=== PATIENT | female | born 1995 | race American Indian/Alaskan Native ===

== ENCOUNTER 2017-10-06 17:31 | Outpatient (CLI) | payer BC, MEDICAID ==
[2017-10-06 19:04] LABS: Bacteria,Urine 2+ /HPF (Negative); Bilirubin,Urine NEG (Negative); Blood,Urine NEG (Negative); Ketones,Urine NEG (Negative); Leukocyte Esterase,Urine NEG (Negative); Mucus,Urine FEW /HPF; Nitrite,Urine NEG (Negative); Protein,Urine <15 mg/dL mg/dL (Negative)
[2017-10-06 19:11] VITALS: BP 127/60
== END 2017-10-06 19:24 | disposition home or self-care (01) ==
LOC: TRG 17:31
PROVIDERS: ATTEND Obstetrics & Gynecology
DX: O47.1 False labor at or after 37 completed weeks of gestation (principal); Z3A.39 39 weeks gestation of pregnancy
CPT/HCPCS: 81001

== ENCOUNTER 2017-10-11 10:18 | Outpatient (CLI) | payer MEDICAID ==
[2017-10-11 11:23] VITALS: BP 102/56
== END 2017-10-11 11:40 | disposition home or self-care (01) ==
LOC: TRG 10:18 → LD 10:19 → TRG 11:40
PROVIDERS: ATTEND Obstetrics & Gynecology
DX: O48.0 Post-term pregnancy (principal); Z3A.40 40 weeks gestation of pregnancy
CPT/HCPCS: 59025

== ENCOUNTER 2017-10-15 19:19 | Inpatient (IN) | payer BC, MEDICAID ==
[2017-10-15] MEDS ORDERED: ePHEDrine SULFATE IV PRN ×2 (20:29→23:46)
[2017-10-15] MEDS ORDERED: BRETHINE SUB-Q PRN (20:29)
[2017-10-15] MEDS ORDERED: BRETHINE IVP PRN (20:29)
[2017-10-15] MEDS ORDERED: MINERAL OIL PO PRN (20:29)
[2017-10-15] MEDS ORDERED: PITOCin/NS 20 UNIT/1000ML DRIP 20 UNITS/1,000 ML BAG IV SCH (21:00)
[2017-10-15] MEDS: LACTATED RINGERS 1,000 ML IV SCH ×3 (21:02→23:31)
--- NOTE | 2017-10-15 21:58 | History and Physical Report ---
History of Present Illness Date of examination: 10/15/17 Date of admission: 10/15/17 20:09 Chief complaint: contractions History of present illness: Pt presents to triage in active labor with regular contractions and cx of 4cm. cx currently is Past History Past Medical History: no pertinent history Past Surgical History: no surgical history Social history: no significant social history, single - Obstetrical History Expected Date of Delivery: 10/10/17 Actual Gestation: 40 Week(s) 5 Day(s) : 3 Para: 2 Number of Living Children: 2 Medications and Allergies Allergies Allergy/AdvReac Type Severity Reaction Status Date / Time No Known Allergies Allergy Unverified 08/22/15 18:50 Home Medications Medication Instructions Recorded Confirmed Last Taken Type No Known Home Medications [No 10/15/17 10/15/17 Unknown History Reported Home Medications] Active Meds: Active Medications Ephedrine Sulfate (Ephedrine Sulfate) 10 mg IV Q2M PRN PRN Reason: Hypotension Lactated Ringer's (Lactated Ringers) 1,000 mls @ 125 mls/hr IV DIRECT JASMYN Last Admin: 10/15/17 21:02 Dose: 125 mls/hr Oxytocin/Sodium Chloride (Pitocin/Ns 20 Unit/1000ml Drip) 20 units in 1,000 mls @ 125 mls/hr IV DIRECT JASMYN Mineral Oil (Mineral Oil) 30 ml PO QHS PRN PRN Reason: Constipation Terbutaline Sulfate (Brethine) 0.25 mg SUB-Q ONCE PRN PRN Reason: Hyperstimulation/Hypertonicity Terbutaline Sulfate (Brethine) 0.25 mg IVP ONCE PRN PRN Reason: Hyperstimulation/Hypertonicity Review of Systems All systems: negative - Vital Signs Vital signs: Vital Signs Temp Resp BP 98.5 F 20 102/52 10/15/17 19:39 10/15/17 19:39 10/15/17 19:39 Temp Pulse Resp BP Pulse Ox 98.5 F 110 H 20 127/71 97 10/15/17 19:39 10/15/17 21:07 10/15/17 19:39 10/15/17 20:40 10/15/17 21:07 - Physical Exam Cardiovascular: Normal S1, Normal S2 Lungs: Positive: Clear to auscultation, Normal air movement Abdomen: Positive: normal appearance, soft. Negative: distention, tenderness, guarding Genitourinary (Female): Positive: normal external genitalia, normal perenium Vagina: Positive: normal moisture - Obstetrical FHR: category 1 Cervical Dilatation: 7 Cervical Effacement Percentage: 100 (BBOW) station: -1 Uterine Contraction Pattern: Regular Uterine Tone Measurement Phase: Resting Uterine Contraction Intensity: Moderate Results Result Diagrams: 10/15/17 20:15 All other labs normal. Assessment and Plan - Patient Problems (1) 40 weeks gestation of Current Visit: Yes Status: Acute (2) Active labor Current Visit: Yes Status: Acute Plan to address problem: -admit -anticipate
[2017-10-15 22:09] LABS: Hematocrit 35.5 % (30.3-42.9); Hemoglobin 11.8 gm/dl (10.1-14.3); Mean Corpuscular HGB Conc 33 % (30-34); Mean Corpuscular Hemoglobin 32 pg (28-32); Mean Corpuscular Volume 96 fl (79-97); Platelet Count 197 K/mm3 (140-440); Red Blood Count 3.69 M/mm3 (3.65-5.03); Red Cell Distribution Width 13.4 % (13.2-15.2)
[2017-10-15] MEDS ORDERED: XYLOCAINE 2% INFILTRATI ONE (22:53)
[2017-10-15] MEDS: ePHEDrine SULFATE IV PRN ×3 (23:00→23:20)
[2017-10-15] MEDS ORDERED: NARCAN 2 MG/2 ML IV PRN (23:03)
--- NOTE | 2017-10-15 23:03 | Anesthesia Consultation ---
Anesthesia Consult and Med Hx Date of service: 10/15/17 - Airway Anesthetic Teeth Evaluation: Good ROM Head & Neck: Adequate Mental/Hyoid Distance: Adequate Mallampati Class: Class II Intubation Access Assessment: Good - Pulmonary Exam CTA: Yes - Cardiac Exam Cardiac Exam: No Murmur - Pre-Operative Health Status ASA Pre-Surgery Classification: ASA2 Proposed Anesthetic Plan: Epidural - Pulmonary Hx Asthma: No COPD: No Hx Pneumonia: No - Cardiovascular System Hx Hypertension: No - Central Nervous System Hx Seizures: No Hx Psychiatric Problems: No - Endocrine Hx Renal Disease: No Hx End Stage Renal Disease: No Hx Hypothyroidism: No Hx Hyperthyroidism: No - Hematic Hx Anemia: No Hx Sickle Cell Disease: No - Other Systems Hx Alcohol Use: No
[2017-10-15] MEDS ORDERED: PITOCin/NS 30 UNIT/500ML 30,000 MILLIUNITS/500 ML BAG IV ONE (23:20)
--- NOTE | 2017-10-15 23:26 | Progress Note ---
Assessment and Plan - Patient Problems (1) 40 weeks gestation of Current Visit: Yes Status: Acute (2) Active labor Current Visit: Yes Status: Acute Plan to address problem: -s/p AROM -anticipate -thick mec on AROM Subjective - Subjective Date of service: 10/15/17 Principal diagnosis: IUP at 40 5/7 active labor s/p SROM with mec Interval history: pt comfortable with epidural in place no c/o at this time Patient reports: new complaints Objective - Vital Signs Vital Signs: Vital Signs - 12hr 10/15/17 10/15/17 10/15/17 19:39 19:40 19:45 Temperature 98.5 F Pulse Rate 99 H 94 H Respiratory 20 Rate Blood Pressure 102/52 Blood Pressure 102/52 [Left] O2 Sat by Pulse 97 98 Oximetry 10/15/17 10/15/17 10/15/17 19:50 19:55 20:00 Temperature Pulse Rate 100 H 98 H 96 H Respiratory Rate Blood Pressure Blood Pressure [Left] O2 Sat by Pulse 98 99 100 Oximetry 10/15/17 10/15/17 10/15/17 20:05 20:40 20:42 Temperature Pulse Rate 108 H 94 H 111 H Respiratory Rate Blood Pressure 127/71 Blood Pressure [Left] O2 Sat by Pulse 98 98 Oximetry 10/15/17 10/15/17 10/15/17 20:47 20:52 20:57 Temperature Pulse Rate 95 H 96 H 104 H Respiratory Rate Blood Pressure Blood Pressure [Left] O2 Sat by Pulse 98 98 98 Oximetry 10/15/17 10/15/17 10/15/17 21:02 21:07 22:29 Temperature Pulse Rate 98 H 110 H 108 H Respiratory Rate Blood Pressure Blood Pressure [Left] O2 Sat by Pulse 98 97 100 Oximetry 10/15/17 10/15/17 10/15/17 22:30 22:32 22:34 Temperature Pulse Rate 102 H 110 H 118 H Respiratory Rate Blood Pressure 117/61 128/63 121/59 Blood Pressure [Left] O2 Sat by Pulse 99 Oximetry 10/15/17 10/15/17 10/15/17 22:36 22:38 22:39 Temperature Pulse Rate 120 H 110 H 113 H Respiratory Rate Blood Pressure 116/58 114/57 Blood Pressure [Left] O2 Sat by Pulse 98 Oximetry 10/15/17 10/15/17 10/15/17 22:40 22:42 22:44 Temperature Pulse Rate 105 H 122 H 109 H Respiratory Rate Blood Pressure 120/56 116/58 122/64 Blood Pressure [Left] O2 Sat by Pulse 99 Oximetry 10/15/17 10/15/17 10/15/17 22:46 22:48 22:49 Temperature Pulse Rate 111 H 122 H 115 H Respiratory Rate Blood Pressure 120/59 120/59 Blood Pressure [Left] O2 Sat by Pulse 99 Oximetry 10/15/17 10/15/17 10/15/17 22:50 22:52 22:54 Temperature Pulse Rate 112 H 107 H 114 H Respiratory Rate Blood Pressure 122/61 117/55 114/56 Blood Pressure [Left] O2 Sat by Pulse 99 Oximetry 10/15/17 10/15/17 10/15/17 22:56 22:59 23:00 Temperature Pulse Rate 111 H 117 H 103 H Respiratory Rate Blood Pressure 128/58 118/60 Blood Pressure [Left] O2 Sat by Pulse 99 Oximetry 10/15/17 10/15/17 10/15/17 23:02 23:04 23:05 Temperature Pulse Rate 97 H 108 H 120 H Respiratory Rate Blood Pressure 115/56 97/49 Blood Pressure [Left] O2 Sat by Pulse 98 Oximetry 10/15/17 10/15/17 10/15/17 23:06 23:08 23:09 Temperature Pulse Rate 103 H 101 H 98 H Respiratory Rate Blood Pressure 100/53 105/55 Blood Pressure [Left] O2 Sat by Pulse 99 Oximetry 10/15/17 10/15/17 10/15/17 23:10 23:12 23:14 Temperature Pulse Rate 106 H 109 H 125 H Respiratory Rate Blood Pressure 104/52 96/47 Blood Pressure [Left] O2 Sat by Pulse 100 Oximetry 10/15/17 10/15/17 10/15/17 23:17 23:19 23:20 Temperature Pulse Rate 129 H 102 H 116 H Respiratory Rate Blood Pressure 90/45 92/47 Blood Pressure [Left] O2 Sat by Pulse 100 Oximetry 10/15/17 10/15/17 10/15/17 23:22 23:24 23:27 Temperature Pulse Rate 109 H 117 H 122 H Respiratory Rate Blood Pressure 94/53 100/54 92/43 Blood Pressure [Left] O2 Sat by Pulse 100 Oximetry - Exam Lungs: Normal air movement Abdomen: Present: normal appearance, soft. Absent: distention, tenderness, guarding FHR: category 2 Cervical Dilatation: 8.5 Cervical Effacement Percentage: 100 station: 0 Uterine Contraction Pattern: Regular Uterine Tone Measurement Phase: Resting Uterine Contraction Intensity: Mild - Labs Labs: Laboratory Results - last 24 hr 10/15/17 10/15/17 20:15 20:15 WBC 8.6 RBC 3.69 Hgb 11.8 Hct 35.5 MCV 96 MCH 32 MCHC 33 RDW 13.4 Plt Count 197 Blood Type O POSITIVE Antibody Screen Negative
[2017-10-15] MEDS ORDERED: fentaNYL-BUPIV 2 MCG/ML-0.125% 200 MCG/100 ML BAG EPIDURAL SCH (23:45)
--- NOTE | 2017-10-16 01:09 | Procedure Note ---
OB Delivery Note - Delivery Date of Delivery: 10/16/17 Surgeon: DELFINO CRUZ Estimated blood loss: 300cc - Vaginal Delivery presentation: vertex Delivery position: OA Intrapartum events: meconium (thick, particulate), mult. late decelerations, mult.variable deceleratio Delivery induction: none Delivery augmentation: rupture of membranes, pitocin Delivery monitor: external FHT, external uterine Route of delivery: Delivery placenta: spontaneous Delivery cord: nuchal cord (times 1 clamped times 2 and cut times one), 3 umbilical vessels Episiotomy: none Delivery laceration: 1st degree (perineal) Delivery repair: vicryl (3-0) Anesthesia: epidural Delivery comments: Delivery as above. Ant shoulder and rest of delivered w/o difficulty. Nuchal cord clamped times two and cut times one. Infant taken to [facility] [facility] to waiting respiratory and NICU staff. Cord blood collected. Laceration noted and repaired with single figure of 8 stitch. EBL 300ml. Pt and stable in LDR. - A at 1 minute: 7 at 5 minutes: 9 Infant Gender: Male (7lbs 6 oz)
[2017-10-16] MEDS ORDERED: TYLENOL PO PRN (01:11)
[2017-10-16] MEDS ORDERED: DULCOLAX PR PRN (01:11)
[2017-10-16] MEDS ORDERED: MILK OF MAGNESIA PO PRN (01:11)
[2017-10-16] MEDS ORDERED: NORCO 5/325 PO PRN (01:11)
[2017-10-16] MEDS ORDERED: LANSINOH TP PRN (01:11)
[2017-10-16] MEDS ORDERED: BENADRYL PO PRN (01:11)
[2017-10-16] MEDS ORDERED: PHENERGAN PR PRN (01:11)
[2017-10-16] MEDS ORDERED: ZOFRAN IV PRN (01:11)
[2017-10-16] MEDS ORDERED: PHENERGAN PO PRN (01:11)
[2017-10-16] MEDS ORDERED: TUCKS PAD TP PRN (01:11)
[2017-10-16] MEDS ORDERED: SODIUM CHLORIDE FLUSH SYRINGE 10 ML IV PRN (02:00)
[2017-10-16] MEDS: MOTRIN PO SCH ×4 (02:52→23:07)
--- NOTE | 2017-10-16 06:29 | Progress Note ---
Assessment and Plan - Patient Problems (1) Spontaneous vaginal delivery Onset Date: ~10/16/17 Current Visit: Yes Status: Acute Plan to address problem: Pt A&O X 3 Bottle feeding NB Declines breast feeding. VSS FF @ umb Lochia moderate H&H pending Doing well 6 hours post- P: continue pathway D/C tomorrow. Subjective - Subjective Date of service: 10/16/17 (no c/o voiced) Principal diagnosis: Day # (6 hours PP) Patient reports: appetite normal, voiding normally, pain well controlled, ambulating normally : doing well Objective - Vital Signs Latest vital signs: Vital Signs Temp Pulse Resp BP BP Pulse Ox 10/16/17 02:52 18 10/16/17 02:35 98.9 F 20 110/64 10/16/17 02:08 108 H 106/59 10/16/17 01:54 115 H 105/54 10/16/17 01:38 116 H 111/53 10/16/17 01:28 109 H 113/56 10/16/17 01:09 111 H 114/56 10/16/17 01:04 124 H 100 10/16/17 00:59 107 H 99 10/16/17 00:54 118 H 100 10/16/17 00:53 109 H 94/47 10/16/17 00:49 111 H 117/53 99 10/16/17 00:44 106 H 112/62 99 10/16/17 00:39 116 H 117/63 98 10/16/17 00:34 126 H 98 10/16/17 00:33 122 H 107/52 10/16/17 00:29 107 H 109/51 99 10/16/17 00:24 104 H 98 10/16/17 00:23 99 H 116/58 10/16/17 00:19 106 H 99 10/16/17 00:18 99 H 113/56 10/16/17 00:14 113 H 100 10/16/17 00:13 114 H 112/64 10/16/17 00:09 120 H 109/64 100 10/16/17 00:04 122 H 100 10/16/17 00:03 109 H 104/50 10/15/17 23:59 92 H 114/53 97 10/15/17 23:54 116 H 97 10/15/17 23:52 115 H 115/55 10/15/17 23:50 114 H 114/56 10/15/17 23:49 99 H 99 10/15/17 23:48 102 H 118/56 10/15/17 23:46 96 H 113/59 10/15/17 23:44 98 H 109/53 100 10/15/17 23:42 120 H 95/48 10/15/17 23:40 116 H 102/55 10/15/17 23:39 129 H 101/57 100 10/15/17 23:36 112 H 109/53 10/15/17 23:34 126 H 107/63 100 10/15/17 23:32 110 H 106/57 10/15/17 23:30 113 H 107/53 10/15/17 23:29 104 H 100 10/15/17 23:28 96 H 104/55 10/15/17 23:27 122 H 92/43 10/15/17 23:24 117 H 100/54 100 10/15/17 23:22 109 H 94/53 10/15/17 23:20 116 H 92/47 10/15/17 23:19 102 H 100 10/15/17 23:17 129 H 90/45 10/15/17 23:14 125 H 100 10/15/17 23:12 109 H 96/47 10/15/17 23:10 106 H 104/52 10/15/17 23:09 98 H 99 10/15/17 23:08 101 H 105/55 10/15/17 23:06 103 H 100/53 10/15/17 23:05 120 H 97/49 10/15/17 23:04 108 H 98 10/15/17 23:02 97 H 115/56 10/15/17 23:00 103 H 118/60 10/15/17 22:59 117 H 99 10/15/17 22:56 111 H 128/58 10/15/17 22:54 114 H 114/56 99 10/15/17 22:52 107 H 117/55 10/15/17 22:50 112 H 122/61 10/15/17 22:49 115 H 99 10/15/17 22:48 122 H 120/59 10/15/17 22:46 111 H 120/59 10/15/17 22:44 109 H 122/64 99 10/15/17 22:42 122 H 116/58 10/15/17 22:40 105 H 120/56 10/15/17 22:39 113 H 98 10/15/17 22:38 110 H 114/57 10/15/17 22:36 120 H 116/58 10/15/17 22:34 118 H 121/59 99 10/15/17 22:32 110 H 128/63 10/15/17 22:30 102 H 117/61 10/15/17 22:29 108 H 100 10/15/17 21:07 110 H 97 10/15/17 21:02 98 H 98 10/15/17 20:57 104 H 98 10/15/17 20:52 96 H 98 10/15/17 20:47 95 H 98 10/15/17 20:42 111 H 98 10/15/17 20:40 94 H 127/71 10/15/17 20:05 108 H 98 10/15/17 20:00 96 H 100 10/15/17 19:55 98 H 99 10/15/17 19:50 100 H 98 10/15/17 19:45 94 H 98 10/15/17 19:40 99 H 102/52 97 10/15/17 19:39 98.5 F 20 102/52 Intake and Output 10/15/17 10/15/17 10/16/17 14:59 22:59 06:59 Intake Total 150 522.817 Balance 150 522.817 Intake: IV 150 162.817 Lactated Ringers 1,000 ml 150 160.417 @ 125 mls/hr IV DIRECT JASMYN Rx#:[id number] PITOCin/NS 30 UNIT/500ML 2.4 30,000 milliunits In 500 ml @ 1 MILLIUNITS/MIN 1 mls/hr IV DIRECT ONE Rx#:[id number] Intake, Free Water 360 Other: Weight 305 lb Estimated Blood Loss 300 Patient Weight 10/16/17 06:59 Weight 305 lb - Exam Breasts: Present: normal Cardiovascular: Present: Regular rate Lungs: Present: Normal air movement Abdomen: Present: normal appearance, soft, normal bowel sounds Uterus: Present: normal Extremities: Present: normal Deep Tendon Reflex Grade: Normal +2 Incision: Present: dry, intact
[2017-10-16] MEDS: PRENATAL VITAMIN PO SCH (09:25)
[2017-10-16 16:35] LABS: Hematocrit 37.6 % (30.3-42.9); Hemoglobin 12.4 gm/dl (10.1-14.3)
[2017-10-17] MEDS ORDERED: BOOSTRIX IM ONE (06:00)
[2017-10-17 06:43] LABS: Hematocrit 34.4 % (30.3-42.9); Hemoglobin 11.2 gm/dl (10.1-14.3)
--- NOTE | 2017-10-17 07:06 | Discharge Summary ---
Providers - Providers Date of Admission: 10/15/17 20:09 Date of discharge: 10/17/17 (Pt agrees to d/c ) Attending physician: DELFINO CRUZ Primary care physician: DELFINO CRUZ Hospitalization Reason for admission: active labor Delivery: Episiotomy: none Laceration: none Incision: normal Other procedures: none complications: none Discharge diagnosis: IUP at term delivered [place] baby: male Hospital course: uncomplicated vaginal delivery Pt w/o complaint Desires d/C VSS FF below umb Lochia small Perineum intact H&H stable Doing well s/p vag delivery P: d/c today with instructions RX provided @ d/c Condition at discharge: Good Disposition: DC-01 TO HOME OR SELFCARE - Discharge Diagnoses (1) Spontaneous vaginal delivery Status: Acute Comment: RTO 4 weeks PP care Plan - Discharge Medications Prescriptions: Ibuprofen [Motrin 800 MG tab] 800 mg PO TID PRN #30 tablet PRN Reason: Pain Lidocain2.5%/Prilocai2.5% [Emla] 2 gm TP ONCE #1 tube - Provider Discharge Summary Activity: routine, no sex for 6 weeks, no heavy lifting 4 weeks, no strenuous exercise Diet: routine Instructions: routine Additional instructions: [] Smoking cessation referral if applicable(refer to patient education folder for contact #) [] Refer to [facility] Booklet Call your doctor immediately for: * Fever > 100.5 * Heavy vaginal bleeding ( >1 pad per hour) * Severe persistent headache * Shortness of breath * Reddened, hot, painful area to leg or breast * Drainage or odor from incision. * Keep incision clean and dry at all times and follow doctor's instructions regarding bathing/showering - Follow up plan Follow up: DELFINO CRUZ MD [Primary Care Provider] - 7 Days (Congratulations! Call [phone] to schedule your visit in 4 weeks and your son's circumcision in 1 week. Bring the EMLA cream with you to his visit. Call with concerns.)
[2017-10-17] MEDS: PRENATAL VITAMIN PO SCH (10:27)
[2017-10-17] MEDS: MOTRIN PO SCH (12:00)
[2017-10-17] MEDS ORDERED: DEPO-PROVERA (CONTRACEPTION) IM ONE (16:42)
[2017-10-17 17:45] VITALS: BP 125/71
== END 2017-10-17 18:00 | disposition home or self-care (01) | DRG 775 ==
LOC: TRG 19:19 → LD 20:09 → OB 10-16 02:43
PROVIDERS: ADMIT Obstetrics & Gynecology; ATTEND Obstetrics & Gynecology
PROC: 10E0XZZ Delivery of Products of Conception, External Approach (ICD-10-PCS; principal; 2017-10-16)
PROC: 0HQ9XZZ Repair Perineum Skin, External Approach (ICD-10-PCS; 2017-10-16)
PROC: 3E0R3BZ Introduction of Anesthetic Agent into Spinal Canal, Percutaneous Approach (ICD-10-PCS; 2017-10-16)
PROC: 00HU33Z Insertion of Infusion Device into Spinal Canal, Percutaneous Approach (ICD-10-PCS; 2017-10-16)
DX: O69.81X0 Labor and delivery complicated by cord around neck, without compression, not applicable or unspecified (principal); Z3A.40 40 weeks gestation of pregnancy; Z37.0 Single live birth; O77.0 Labor and delivery complicated by meconium in amniotic fluid; O70.0 First degree perineal laceration during delivery; O76 Abnormality in fetal heart rate and rhythm complicating labor and delivery
CPT/HCPCS: 36415; 85014; 85018; 85027; 86592; 86850; 86900; 86901; 88307; 90471; J1050; J2590; J7120